=== PATIENT | male | born 1960 | race Caucasian/White ===

== ENCOUNTER 2016-04-27 04:35 | Emergency (ER) | payer OTHER ==
[~2016-04-27] VITALS: Ht 172.7 cm; Wt 70.0 kg
[~2016-04-27 04:35] MED LIST: CIPR500T4 PO; IBUP800T23 PO; PRED50 PO; ULTR50TA PO
[2016-04-27 04:38] VITALS: BP 171/89; PULSE 86; RESP 16; TEMP 97.6; O2SAT 95
[2016-04-27] MEDS ORDERED: LIDOCAINE 1%/EPINEPHrine 1:100,000 SOLN 20 ML VIAL INFIL ONE (05:15)
[2016-04-27] MEDS ORDERED: LIDOCAINE 1%/EPINEPHrine 1:100,000 SOLN 20 ML VIAL ONE (05:21)
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
[2016-04-27] MEDS ORDERED: CEPHALEXIN MONOHYDRATE 500 MG CAP PO ONE (06:00)
[2016-04-27] MEDS ORDERED: IBUP800T23 PO (06:02)
[2016-04-27] MEDS ORDERED: CEPH-460 PO (06:02)
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
[2016-04-27] MEDS ORDERED: ACETAMINOPHEN/HYDROcodone 325 MG/5 MG TAB PO ONE (06:30)
== END 2016-04-27 06:49 | disposition home or self-care (01) ==
LOC: NEPB 04:35
DX: S81.811A Laceration without foreign body, right lower leg, initial encounter (principal); F17.210 Nicotine dependence, cigarettes, uncomplicated; W19.XXXA Unspecified fall, initial encounter
CPT/HCPCS: 12004; 73590; 99283; E0113

== ENCOUNTER 2016-05-04 17:29 | Emergency (ER) | payer OTHER ==
[~2016-05-04] VITALS: Ht 172.7 cm; Wt 75.0 kg
[~2016-05-04 17:29] MED LIST changes: +CEPH-460 PO; -CIPR500T4 PO; -PRED50 PO; -ULTR50TA PO
[2016-05-04 17:30] VITALS: BP 151/76; PULSE 79; RESP 15; TEMP 98; O2SAT 97
[2016-05-04] MEDS ORDERED: BACT800T5 PO (18:31)
--- NOTE | 2016-05-04 18:48 | PD ---
HPI Chief Complaint: Skin Problem Time Seen by Provider: 18:09 Travel History International Travel<30 days: No Contact w/Intl Traveler<30days: No Traveled to known affect area: No History of Present Illness HPI This patient complains of some drainage and redness around his right leg wound. Duration 2 days. Severity is mild. No fever. The drainage is fairly scant. PFSH Past Medical History Anxiety: Yes Diminished Hearing: No Inguinal Hernia: Yes Musculoskeletal: Yes Psychiatric: Yes Past Surgical History Neurologic Surgery: Yes (FOR HERNIATION L4 L5) Social History Alcohol Use: Yes (one x a week) Tobacco Use: Yes (1/2 PPD FOR 30 YEARS) Substance Use: No Allergies-Medications (Allergen,Severity, Reaction): Coded Allergies: No Known Allergies (Verified , 05/04/16) Reported Meds & Prescriptions Reported Meds & Active Scripts Active Bactrim DS (Sulfamethoxazole-Trimethoprim) 800-160 Mg Tab 1 Tab PO BID Ibuprofen 800 Mg Tab 800 Mg PO Q6HR PRN 7 Days Keflex (Cephalexin) 500 Mg Cap 500 Mg PO Q6H 5 Days Review of Systems General / Constitutional: No: Fever HENT: No: Headaches Cardiovascular: No: Chest Pain or Discomfort Physical Exam Narrative Psych: Normal mood and affect. Normal insight and judgment. SKIN: Inspection shows no rash or ulcers. Palpation shows no induration or nodules. Right leg: There is a right angle oriented sutured laceration. No dehiscence. No fluctuance or active drainage. There is a scant bit of superficial macular erythema around the wound. One tiny area of yellow honey crusting is present. Data Data Last Documented VS Vital Signs Date Time Temp Pulse Resp B/P Pulse Ox O2 Delivery O2 Flow Rate FiO2 05/04/16 18:12 79 16 05/04/16 17:30 98.0 151/76 97 MDM Medical Decision Making Medical Screen Exam Complete: Yes Emergency Medical Condition: Yes Medical Record Reviewed: Yes Differential Diagnosis Wound infection, dehiscence, cellulitis Narrative Course I have reviewed the patient's electronic medical record. Reviewed his visit from a few days ago where he came here for sutures Patient has a minor early wound infection I don't feel the sutures need to removed at this point script written for bactrim to augment his keflex and cover community acquired MRSA Diagnosis Primary Impression: Wound cellulitis Scripts Sulfamethoxazole-Trimethoprim (Bactrim DS)800-160 Mg Tab1 Tab PO BID #14 TAB Ref 0 Prov:Sridhar Rodriguez MD 05/04/16 Disposition: 01 DISCHARGE HOME Condition: Stable Sridhar Rodriguez MD May 04, 2016 18:48
== END 2016-05-04 19:52 | disposition home or self-care (01) ==
LOC: NEPC 17:29
DX: L03.115 Cellulitis of right lower limb (principal); F17.210 Nicotine dependence, cigarettes, uncomplicated
CPT/HCPCS: 99282

== ENCOUNTER 2016-10-02 14:00 | Emergency (ER) | payer OTHER ==
[~2016-10-02 14:00] MED LIST changes: +BACT800T5 PO
[2016-10-02 14:03] VITALS: BP 128/69; PULSE 71; RESP 18; TEMP 98.9; O2SAT 97
--- NOTE | 2016-10-02 14:16 | PD ---
Physical Exam Time Seen by Provider: 14:15 Narrative 56yo M c/o possible insect bite to L bicep area since yesterday. Denies fever, vomiting. Patient seen in triage. VS reviewed. Awaiting bed placement. Data Data Last Documented VS Vital Signs Date Time Temp Pulse Resp B/P Pulse Ox O2 Delivery O2 Flow Rate FiO2 10/02/16 14:03 98.9 71 18 128/69 97 Room Air [facility] Supervised Visit with BERNARDO: Radha Jimenez Oct 02, 2016 14:16
[2016-10-02] MEDS ORDERED: PRED50 PO (14:51)
[2016-10-02] MEDS ORDERED: BACT800T5 PO (14:51)
--- NOTE | 2016-10-02 14:51 | PD ---
HPI . L upper arm redness and mild pain for 1 day Chief Complaint: Skin Problem Time Seen by Provider: 14:44 Travel History International Travel<30 days: No Contact w/Intl Traveler<30days: No Traveled to known affect area: No History of Present Illness HPI 56-year-old male here with complaints of left upper arm swelling, pain and redness for the past day. Patient thinks he may have been bitten by something, but is uncertain. He is now complaining of some pain, redness and swelling for the past day. He tells me the pain is very mild. He has a history of infections and therefore wanted to come in early to be seen. He denies any fever or chills. He does report having some dizziness in the morning, but it's now subsided. He has no other complaints. He is accompanied by his significant other. He tells me that he needs to hurry up and be seen because he has to go trespass his brother from his property. He is requesting I go as fast as possible. PFSH Past Medical History Anxiety: Yes Diminished Hearing: No Inguinal Hernia: Yes Musculoskeletal: Yes Psychiatric: Yes Past Surgical History Neurologic Surgery: Yes (FOR HERNIATION L4 L5) Social History Alcohol Use: Yes (one x a week) Tobacco Use: Yes (1/2 PPD FOR 30 YEARS) Substance Use: No Allergies-Medications (Allergen,Severity, Reaction): Coded Allergies: No Known Allergies (Verified , 05/04/16) Reported Meds & Prescriptions Reported Meds & Active Scripts Active Prednisone 50 Mg Tab 50 Mg PO DAILY Bactrim DS (Sulfamethoxazole-Trimethoprim) 800-160 Mg Tab 1 Tab PO BID Bactrim DS (Sulfamethoxazole-Trimethoprim) 800-160 Mg Tab 1 Tab PO BID Ibuprofen 800 Mg Tab 800 Mg PO Q6HR PRN 7 Days Keflex (Cephalexin) 500 Mg Cap 500 Mg PO Q6H 5 Days Review of Systems General / Constitutional: No: Fever Eyes: No: Visual changes HENT: No: Headaches Cardiovascular: No: Chest Pain or Discomfort Respiratory: No: Shortness of Breath Gastrointestinal: No: Abdominal Pain Genitourinary: No: Dysuria Musculoskeletal: No: Pain Skin: Positive Other (left upper extremity redness and pain ), No Rash Neurologic: No: Weakness Psychiatric: No: Depression Endocrine: No: Polydipsia Hematologic/Lymphatic: No: Easy Bruising Physical Exam Narrative GENERAL: AAO x 3, no acute distress, Well-nourished, well-developed patient. SKIN: Warm and dry. No visible rashes or bruising. left upper ext, bicep, mild erythema, mild warmth, no fluid collection or induration. HEAD: Normocephalic and atraumatic. EYES: No scleral icterus. No injection or drainage. ENT: No nasal drainage noted. Mucous membranes pink. Airway patent. NECK: Supple, trachea midline. No JVD. CARDIOVASCULAR: Regular rate and rhythm without murmurs, gallops, or rubs. RESPIRATORY: Breath sounds equal bilaterally. No accessory muscle use. No rhonchi or rales. GASTROINTESTINAL: Abdomen soft, non-tender, nondistended. EXTREMITIES: No cyanosis or edema. pulses normal upper ext. bilaterally BACK: Nontender without obvious deformity. No CVA tenderness. NEURO: CN II-12 intact, repair servicer strength normal b/l, UE and LE 5/5, no focal deficits PSYCH: AAO x 3, normal affect. Data Data Last Documented VS Vital Signs Date Time Temp Pulse Resp B/P Pulse Ox O2 Delivery O2 Flow Rate FiO2 10/02/16 14:03 98.9 71 18 128/69 97 Room Air MDM Medical Decision Making Medical Screen Exam Complete: Yes Emergency Medical Condition: Yes Medical Record Reviewed: Yes Differential Diagnosis cellulitis, insect bite, localized allergic reaction, Narrative Course 56-year-old male here with complaints of left upper arm erythema and pain for the past day. He is not certain if he was bitten by insect. On examination this looks like it could be a possible insect bite versus early cellulitis. There is no definitive abscess. I will go ahead and treat the patient with a course of antibiotics and steroids. We have discussed the signs of worsening infection when to return to the emergency department. Patient verbalized understanding of instructions, questions were answered, and thanked me for their care. I advised them if their condition worsens, please return to the nearest emergency room for further care. Diagnosis Primary Impression: Insect bite of left arm Qualified Code: S40.862A - Insect bite of left arm, initial encounter Additional Impression: Left arm cellulitis Patient Instructions: General Instructions Additional Instructions: Please return to emergency department if your symptoms return or worsen. Follow up with your primary care provider. Take medications as prescribed. [place] for worsening signs of infection which include fever, increased redness , increased warmth, purulent drainage, increased swelling or streaking. If any of these develop, please go to the nearest emergency room. Med/Other Pt SpecificInfo: Prescription(s) given Scripts Prednisone 50 Mg Tab50 Mg PO DAILY #5 TAB Prov:Jaida Aguilera MD 10/02/16 Sulfamethoxazole-Trimethoprim (Bactrim DS)800-160 Mg Tab1 Tab PO BID #20 TAB Prov:Jaida Aguilera MD 10/02/16 Disposition: 01 DISCHARGE HOME Condition: Stable Fanny Meza Oct 02, 2016 14:51
== END 2016-10-02 15:06 | disposition home or self-care (01) ==
LOC: NEPD 14:00
DX: S40.862A Insect bite (nonvenomous) of left upper arm, initial encounter (principal); L03.114 Cellulitis of left upper limb; F17.200 Nicotine dependence, unspecified, uncomplicated; Z86.59 Personal history of other mental and behavioral disorders; Z87.39 Personal history of other diseases of the musculoskeletal system and connective tissue; W57.XXXA Bitten or stung by nonvenomous insect and other nonvenomous arthropods, initial encounter
CPT/HCPCS: 99284

== ENCOUNTER 2016-11-16 20:09 | Emergency (ER) | payer OTHER ==
[~2016-11-16] VITALS: Ht 167.6 cm; Wt 66.0 kg
[~2016-11-16 20:09] MED LIST changes: +PRED50 PO
[2016-11-16 20:10] VITALS: BP 122/78; PULSE 90; RESP 16; TEMP 98.6; O2SAT 96
[2016-11-16] MEDS ORDERED: CEPHALEXIN MONOHYDRATE 500 MG CAP PO ONE (21:15)
[2016-11-16] MEDS ORDERED: SILVER SULFADIAZINE 1% CR 50 GM JAR TOPICAL ONE (21:15)
[2016-11-16] MEDS ORDERED: oxyCODONE/ACETAMINOPHEN 5 MG/325 MG TAB PO ONE (21:15)
[2016-11-16] MEDS ORDERED: SULFAMETHOXAZOLE-TRIMETHOPRIM DS 800-160 MG TAB PO ONE (21:15)
[2016-11-16] MEDS ORDERED: BACT800T5 PO (21:23)
[2016-11-16] MEDS ORDERED: CEPH-460 PO (21:23)
[2016-11-16] MEDS ORDERED: SILV1CRE20 TOPICAL (21:23)
[2016-11-16] MEDS ORDERED: PERC5TAB12 PO (21:23)
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
== END 2016-11-16 21:34 | disposition home or self-care (01) ==
LOC: NEPD 20:09
DX: T23.202A Burn of second degree of left hand, unspecified site, initial encounter (principal); L03.114 Cellulitis of left upper limb; X17.XXXA Contact with hot engines, machinery and tools, initial encounter
CPT/HCPCS: 16020